=== PATIENT | male | born 1955 | race Caucasian/White ===

== ENCOUNTER 2017-09-27 13:56 | Emergency (ER) | payer BC ==
[2017-09-27 15:52] VITALS: BP 136/71
--- NOTE | 2017-09-27 18:35 | ED ---
Idris Garcia Thomas, scribed for Juan A You MD on 09/27/17 at 1503 . Influenza-Like Illness - HPI Summary HPI Summary: The patient is a 62 year old male presenting with chills, fever, body aches, nasal discharge, and sore throat. Symptoms began yesterday. - History of Current Complaint Chief Complaint: EDFluSymptoms Time Seen by Provider: 09/27/17 14:57 Hx Obtained From: Patient Onset/Duration: Sudden Onset, Lasting Days - 1, Still Present Associated Signs & Symptoms: Fever, Myalgia, Sore Throat, Nasal Congestion Related Hx: Possible Flu/Infectious Exposure - Allergy/Home Medications Allergies/Adverse Reactions: Allergies Allergy/AdvReac Type Severity Reaction Status Date / Time MS Sulfa Antibiotics Allergy Hives Verified 09/27/17 14:53 [Sulfa Antibiotics] shellfish derived Allergy Hives Verified 09/27/17 14:53 PMH/Surg Hx/FS Hx/Imm Hx Opthamlomology History: Denies: Hx Legally Blind EENT History: Denies: Hx Deafness Infectious Disease History: No Infectious Disease History: Denies: Traveled Outside the [place] in Last 30 Days - Family History Known Family History: Positive: Other - Patient denies relevant FHx - Social History Alcohol Use: None Substance Use Type: Reports: None Smoking Status (MU): Unknown if Ever Smoked Review of Systems Positive: Fever, Chills Positive: Sore Throat, Nasal Discharge Positive: Myalgia All Other Systems Reviewed And Are Negative: Yes Physical Exam - Summary Physical Exam Summary: VITAL SIGNS: Reviewed. GENERAL: Patient is a well-developed and nourished male who is lying comfortable in the stretcher. Patient is not in any acute respiratory distress. HEAD AND FACE: No signs of trauma. No ecchymosis, hematomas or skull depressions. No sinus tenderness. Nasal discharge is present. EYES: PERRLA, EOMI x 2, No injected conjunctiva, no nystagmus. EARS: Hearing grossly intact. Ear canals and tympanic membranes are within normal limits. MOUTH: Oropharynx within normal limits. Pharyngeal erythema. NECK: Supple, trachea is midline, no adenopathy, no JVD, no carotid bruit, no c- spine tenderness, neck with full ROM. CHEST: Symmetric, no tenderness at palpation LUNGS: Clear to auscultation bilaterally. No wheezing or crackles. CVS: Regular rate and rhythm, S1 and S2 present, no murmurs or gallops appreciated. ABDOMEN: Soft, non-tender. No signs of distention. No rebound no guarding, and no masses palpated. Bowel sounds are normal. EXTREMITIES: FROM in all major joints, no edema, no cyanosis or clubbing. NEURO: Alert and oriented x 3. No acute neurological deficits. Speech is normal and follows commands. SKIN: Dry and warm Triage Information Reviewed: Yes Vital Signs On Initial Exam: Initial Vitals Temp Pulse Resp BP Pulse Ox 101.4 F 111 18 181/106 95 09/27/17 14:10 09/27/17 14:10 09/27/17 14:10 09/27/17 14:10 09/27/17 14:10 Vital Signs Reviewed: Yes Diagnostics - Vital Signs Vital Signs Temp Pulse Resp BP Pulse Ox 09/27/17 14:10 101.4 F 111 18 181/106 95 - Laboratory Lab Results: Lab Results 09/27/17 Range/Units 15:02 Influenza A (Rapid) Positive H (Negative) Influenza B (Rapid) Negative (Negative) Lab Statement: Any lab studies that have been ordered have been reviewed, and results considered in the medical decision making process. Flu Symptom Course/Dx - Course Assessment/Plan: The patient is a 62 year old male presenting with chills, fever , body aches, nasal discharge, and sore throat. Symptoms began yesterday. Influenza B is positive. The patient will be discharged home with a prescription for Tamiflu. The patient is hemodynamically stable and alert and oriented x3. - Diagnoses Differential Diagnosis/HQI/PQRI: Positive: Bronchitis, Influenza, Pneumonia, Upper Respiratory Infection Provider Diagnoses: Influenza Discharge - Discharge Plan Condition: Stable Disposition: HOME Prescriptions: Oseltamivir SUSP 75 MG dose* [Tamiflu SUSP 75 MG dose*] 75 mg PO BID #10 oral.syrin Patient Education Materials: Influenza (ED) Referrals: Dalton Holly MD [Primary Care Provider] - 3 Days Additional Instructions: Follow up with your primary care provider in three days. Return to the emergency department for any new or worsening symptoms. The documentation as recorded by the Idris antunez Thomas accurately reflects the service I personally performed and the decisions made by Avelino reece Walter, MD.
== END 2017-09-27 15:51 | disposition home or self-care (01) ==
LOC: ED 13:56
DX: J11.1 Influenza due to unidentified influenza virus with other respiratory manifestations (principal); Z88.2 Allergy status to sulfonamides
CPT/HCPCS: 87502; 99282